=== PATIENT | male | born 1950 | race Caucasian/White ===

== ENCOUNTER 2017-02-19 15:55 | Inpatient (IN) | payer OTHER ==
[~2017-02-19] VITALS: Ht 180.3 cm; Wt 65.9 kg
--- NOTE | ~2017-02-19 | WRIGHTHP ---
[place], [place] PATIENT HISTORY AND PHYSICAL EXAM NAME: MIN VILCHIS UNIT #: [id number] ROOM: 421 DOCTOR: ALLISON NAYLORWILD BIRTHDATE: [birth year] DOS: 02/19/2017 HISTORY OF PRESENT ILLNESS: This is a 66-year-old patient who presented with anemia and after his lab results were assessed, was guided to be admitted for definitive evaluation. PAST MEDICAL HISTORY: Associated with atrial fibrillation, cirrhosis, hypertension, COPD and near syncopal episodes, depression, GERD, rectal mass. PAST SURGICAL HISTORY: Carotid endarterectomy, bronchoscopy, colon surgery. ALLERGIES: Details not known, cataract extraction. SOCIAL HISTORY: Heavy smoker and social alcohol consumer. FAMILY HISTORY: Noncontributory. ALLERGIES: None. MEDICATIONS: List has been reviewed. REVIEW OF SYSTEMS: HEENT: Denies double vision, blurred vision. RESPIRATORY: Denies acute shortness of breath. CARDIOVASCULAR: Denies acute chest pain. DIGESTIVE SYSTEM: No hematemesis, no hematochezia. PHYSICAL EXAMINATION: GENERAL: Relatively well-nourished, thin and tall patient. HEENT: Head normocephalic, nontraumatic. Mouth and buccal mucosa benign. NECK: Supple, no thyromegaly, no cervical lymphadenopathy. CHEST: Symmetric anatomy, decreased air entry bilaterally. HEART: Normal sinus rhythm, no gallop, no murmur. ABDOMEN: Soft. No hepato-organomegaly. Bowel sounds present. No pulsatile mass. EXTREMITIES: No cyanosis, no pedal edema. NEUROLOGICAL: Alert, oriented to time, place, person. LABORATORY DATA: Reviewed. Records reviewed. The patient was admitted with H and H of 7 and 26, microcytic indices, platelets 428. Today's H and H still remains 7 and 26 despite one unit of transfusion. Comprehensive metabolic panel, GFR greater than 60. His initial sodium was 121, severe hyponatremia. This has been addressed and sodium has been corrected to the level of 128. Etiology of hyponatremia has not been fully worked up yet. Chest x-ray, no cardiopulmonary abnormality. I will be remaining concerned if he has occult bronchogenic pathology to be contributory to hyponatremia. His CT scan of the head has no acute intracranial pathology. His troponin has been within normal limits. Hemoglobin A1c has been 5.4. PLAN AND DISCUSSION: Dyazide has been already placed on hold. EGD and [place], [place] PATIENT HISTORY AND PHYSICAL EXAM NAME: MIN VILCHIS UNIT #: [id number] ROOM: [facility] DOCTOR: WILD COOPER MD BIRTHDATE: [birth year] colonoscopy has been organized and clinical reassessment. Other adjunctive diagnoses as outlined. Past medical and surgical history, workup in progress. WILD COOPER MD CM:HISPHYS:PATIENT HISTORY AND PHYSICAL EXAMINATION [id number] WILD COOPER MD 02/20/171850 interface
--- NOTE | ~2017-02-19 | O ---
[place], [place] OPERATIVE NOTE NAME: MIN VILCHIS UNIT #: [id number] ROOM: 421 DOCTOR: ALLISON NAYLOR,WILD BIRTHDATE: [birth year] DOS: 02/19/2017 GASTROENDOSCOPIC REPORT INDICATIONS: The patient has presented with anemia, undergoing investigation. PROCEDURE: Today's procedure part of investigation is panendoscopy. PREMEDICATION: Versed and Diprivan. SCOPE: Olympus forward-viewing gastroscope Q10 video. REPORT: After putting the patient in the left lateral position and after application of lubricant to the scope, the scope was introduced. Thereafter, under direct visualization, I advanced through the length of esophagus without difficulty. A small hiatal hernia was noticed. Gastric pouch was entered. Gastritis seen. Duodenal bulb, second and third part within normal limit. AV malformations site in proximal greater curvature was noticed, photographed. Air was suctioned out. The patient was extubated, tolerated the procedure well. IMPRESSION: Hiatal hernia, arteriovenous malformation of greater curvature, gastritis. PLAN AND DISCUSSION: This patient should be off on anticoagulant in future. He needs to have follow up colonoscopies, so that his right colon can be scanned. Also, he has had multiple irregular polyps that I am concerned about the pathology report in in future and he is going to have follow up as outpatient and will sort out for near future colonoscopy again. WILD COOPER MD CM:OPRECORD:OPERATIVE NOTE [id number] WILD COOPER MD 02/21/17 0146 interface
--- NOTE | ~2017-02-19 | O ---
[place], [place] OPERATIVE NOTE NAME: MIN VILCHIS UNIT #: [id number] ROOM: 421 DOCTOR: ALLISON NAYLOR,WILD BIRTHDATE: [birth year] DOS: 02/19/2017 GASTROENDOSCOPIC REPORT HISTORY: A 66-year-old patient who presented with chief complaint of anemia, undergoing investigation. PROCEDURE: Today's procedure part of investigation is colonoscopy. PREMEDICATION: Versed and Diprivan. SCOPE: Olympus folding colonoscope 10L video. REPORT: After putting the patient in the left lateral position and after application of lubricant to rectal pouch and digital examination, scope was introduced. Thereafter, under direct visualization, I advanced through the length of colon. There was a very large cauliflower polypoid lesion on a long stalk in 10 cm from rectum was polypectomized. Small segment was removed. Another polypoid lesion in the proximal sigmoid colon again nodular snare was polypectomized and removed ____ late. Another polypoid lesion which is flat at about splenic flexure with a snare polypectomized and removed and site was tattooed. Another polypoid lesion again flat at about mid transverse colon with a snare with polypectomy removed and site was tattooed. Hepatic flexure and onwards is filled with solid stool. Scope was withdrawn. The patient extubated, tolerated procedure well. IMPRESSION: Multi-colonic polyp concerned about pathology of the polyp at 10 cm, status post multi-tattoo, concerned pathology. This patient requires to have multiple colonoscopies in future to sort out the rest of the colon. Meanwhile, I am going to proceed with panendoscopy today. WILD COOPER MD CM:OPRECORD:OPERATIVE NOTE [id number] WILD COOPER MD 02/21/17 0139 interface
[~2017-02-19 15:55] MED LIST: ADVAIR HFA 115/1 AER INH; ENALAPRILA1.25 MG/M1 IV; KAOPECTATE525 MG/11 PO; KLONOPIN0.5 MG PO; METOPROLOL25 MG PO; NATURE'S BLEND F1 MG PO; NORVASC5 MG PO; PLAVIX75 M1 PO; PROTONIX40 M1 IV; PROTONIX40 MG PO; SPIRIVA18 MCG PO; Ventolin 02.5 MG/3 M INH
[2017-02-19 16:01] VITALS: BP 134/70
[2017-02-19 16:45] LABS: BASO # 0.1 10*3/uL (0.0-0.1); EOS # 0.2 10*3/uL (0.0-0.4); EOS % 2.2 % (1.0-4.0); HEMOGLOBIN 7.7 g/dl (14.0-18.0); LYMPH # 1.2 10*3/uL (1.3-4.4); LYMPH % 14.7 % (27.0-41.0); MEAN CELL VOLUME 64.8 fl (80.0-94.0); MEAN CORPUSCULAR HGB 19.2 pg (27.0-31.0); MEAN CORPUSCULAR HGB CONC 29.6 g/dl (33.0-37.0); MEAN PLATELET VOLUME 8.4 fl (9.6-12.3); MONO # 0.8 10*3/uL (0.1-1.0); NEUT % 71.7 % (47.0-73.0); PLATELET COUNT AUTOMATED 422 10*3/uL (130-400); RED BLOOD COUNT 4.01 10*6/uL (4.50-5.90); RED CELL DISTRI WIDTH 19.2 % (0-14.5); WHITE BLOOD COUNT 8.3 10*3/uL (4.8-10.8)
[2017-02-19 16:47] LABS: ALBUMIN 3.9 gm/dl (3.1-4.5); ALKALINE PHOSPHATASE 114 U/L (45-117); BUN 6 mg/dl (7-24); CHLORIDE 82 mmol/L (98-107); CREATININE 0.76 mg/dL (0.70-1.30); POTASSIUM 3.5 mmol/L (3.5-5.1); SGOT/AST 14 IU/L (3-35); SGPT/ALT 19 U/L (12-78); SODIUM 121 mmol/L (136-145); TOTAL PROTEIN 8.1 gm/dL (6.4-8.2)
[2017-02-19 16:48] LABS: TROPONIN I < 0.015 ng/ml (<0.045)
[2017-02-19 16:53] LABS: ACT PARTIAL THROMBO TIME 33.5 SECONDS (20.8-31.5)
[2017-02-19 18:13] VITALS: BP 132/60
[2017-02-19 18:45] VITALS: BP 145/55
--- NOTE | 2017-02-19 18:50 | NUR ---
CONSULT CALLED TO DR. CASTELLANOS ANSWERING SERVICE.
--- NOTE | 2017-02-19 18:50 | NUR ---
A 66, admitted to 4E, under the services of ENIO Butler DO with a diagnosis of . Chief complaint is weakness. Patient arrived via stretcher from ER. Monitor applied. Initial assessment completed. Vital signs taken and recorded. ENIO BUTLER DO notified of admission to the unit. See assessment for past medical history, medications and allergies. Patient and/or family oriented to unit Clothing/patient valuable form completed. ALIZA LOWE
[2017-02-19] MEDS ORDERED: VITAMIN D350000 UNIT PO (19:20)
[2017-02-19] MEDS ORDERED: BUSPAR5 MG PO (19:21)
[2017-02-19] MEDS ORDERED: MIRTAZAPINE15 M2 PO (19:21)
[2017-02-19] MEDS ORDERED: OMEPRAZOLE MAGN20 MG PO (19:22)
[2017-02-19] MEDS ORDERED: CARDIZEM CD240 M1 PO (19:23)
[2017-02-19] MEDS ORDERED: K-TAB20 MEQ PO (19:23)
[2017-02-19] MEDS ORDERED: DYAZIDE 37.5-21 EACH PO (19:32)
--- NOTE | 2017-02-19 19:32 | NUR ---
home medications updated and varified with [facility]
[2017-02-19 20:00] VITALS: BP 153/61
--- NOTE | 2017-02-19 20:23 | NUR ---
1945 RESTING IN BED ON LEFT SIDE. ALERT. BLOOD TRANSFUSION PERMIT SIGNED. IV FLUIDS STARTED PER ORDER. NO C/O'S PAIN VOICED. NO DISTRESS NOTED.
--- NOTE | 2017-02-19 21:42 | NUR ---
NOTIFIED ON CONSULT. ORDERS RECEIVED.
--- NOTE | 2017-02-19 21:47 | NUR ---
PT INFORMED OF EGD/COLO TO BE DONE IN AM. INFORMED OF PREP TO BE STARTED,NPO AFTER MIDNIGHT ETC
--- NOTE | 2017-02-19 22:15 | NUR ---
AWAITING PHARMACY TO SEND PREP. IV FLUIDS CONT. RESTING IN BED WITH EYES CLOSED. CONDITION GUARDED.
--- NOTE | 2017-02-19 22:31 | NUR ---
DULCOLAX TABS GIVEN AND PT DRINKING POWERADE/MIRALAX FOR COLO PREP AT PRESENT TIME. ANESTHESIA QUESTIONAIRRE FILLED OUT AND SIGNED.
[2017-02-20] VITALS (9 sets, daily range): BP systolic 118–142; BP diastolic 49–73
[2017-02-20 02:11] LABS: BASO # 0.1 10*3/uL (0.0-0.1); BASO % 0.7 % (0.0-1.0); EOS # 0.2 10*3/uL (0.0-0.4); EOS % 1.9 % (1.0-4.0); HEMATOCRIT 26.7 % (42.0-52.0); HEMOGLOBIN 7.7 g/dl (14.0-18.0); LYMPH # 1.2 10*3/uL (1.3-4.4); LYMPH % 13.6 % (27.0-41.0); MEAN CELL VOLUME 65.9 fl (80.0-94.0); MEAN CORPUSCULAR HGB CONC 28.8 g/dl (33.0-37.0); MEAN PLATELET VOLUME 8.5 fl (9.6-12.3); MONO # 1.2 10*3/uL (0.1-1.0); MONO % 13.5 % (3.0-9.0); NEUT # 6.4 10*3/uL (2.3-7.9); PLATELET COUNT AUTOMATED 471 10*3/uL (130-400); RED BLOOD COUNT 4.05 10*6/uL (4.50-5.90); RED CELL DISTRI WIDTH 19.4 % (0-14.5); WHITE BLOOD COUNT 9.1 10*3/uL (4.8-10.8)
[2017-02-20 02:26] LABS: ALBUMIN 3.3 gm/dl (3.1-4.5); ALKALINE PHOSPHATASE 100 U/L (45-117); BUN 9 mg/dl (7-24); CHLORIDE 88 mmol/L (98-107); CHOLESTEROL 151 mg/dL (<200); CREATININE 0.79 mg/dL (0.70-1.30); PHOSPHOROUS 3.7 mg/dL (2.5-4.9); POTASSIUM 4.1 mmol/L (3.5-5.1); SGOT/AST 13 IU/L (3-35); SGPT/ALT 14 U/L (12-78); SODIUM 128 mmol/L (136-145); TOTAL PROTEIN 6.8 gm/dL (6.4-8.2); TRIGLYCERIDES 44 mg/dl (<150); VLDL CHOLESTEROL 9 mg/dL (6-40)
[2017-02-20 02:27] LABS: FREE T4 1.12 ng/dl (0.76-1.46); HDL CHOLESTEROL 100 mg/dl (40-60); LDL CHOLESTEROL 42 mg/dL (9-159)
[2017-02-20 02:53] LABS: VITAMIN D, 25-HYDROXY 56.9 ng/mL (30-100)
--- NOTE | 2017-02-20 04:04 | NUR ---
BLOOD TRANSFUSING PER DR. ORDERS AT THIS TIME. PT. SEEMS TO BE TOLERATING WELL. WILL CONTINUE TO MONITOR.
--- NOTE | 2017-02-20 08:19 | NUR ---
CALLED DR MCINTYRE OFFICE AND MADE THEM AWARE OF CONSULT FOR PATIENT.
--- NOTE | 2017-02-20 08:37 | NUR ---
PATIENT IS PLEASANT AND COOPERATIVE, AAOX3, PATIENT IS CURRENTLY RECEIVING ENEMA AND IS NPO DIGNA MARLEYCC
--- NOTE | 2017-02-20 09:42 | NUR ---
ENEMAS GIOVEN UNTIL CLEAR, PT TOLERATED THE PROCEDURE WELL GERMANIA RIVERO
--- NOTE | 2017-02-20 10:50 | NUR ---
PT RESTING COMFORTABLY. WAITING FOR PROCEDURE. YANCY DURANT SPNRCC
--- NOTE | 2017-02-20 12:31 | NUR ---
PATIENT LAYING QUIETLY IN BED, PATIENT VOICED SOME AGITATION ABOUT BEING HUNGRY BUT HE IS STILL NPO DIGNA MARLEYCC
--- NOTE | 2017-02-20 13:35 | NUR ---
TO SURGERY ACCOMPANIED BY OR STAFF GERMANIA LAM SPFLAVIACC
--- NOTE | 2017-02-20 14:00 | NUR ---
case management visits with patient, was present, patient lives at home with , he uses a cane for ambulation, stated that he would be returning home with her. discussed with them Vna and refused any at this time, case management will follow
--- NOTE | 2017-02-20 15:10 | NUR ---
PT RESTING IN BED. NO C/O AT THIS TIME. SURGERY ON THE FLOOR TO TAKE PT VIA BED FOR PROCEDURE. SEE SHIFT ASSESSMENT.
--- NOTE | 2017-02-20 21:00 | NUR ---
PT ASSESSED AT THIS TIME. ALERT ORIENTED AND PLEASANT MOOD. RESPIRATIONS EASY AND UNLABORED. NO S/S OF DISTRESS OR PAIN. LUNGS DIMINISHED BILATERALLY, HEART RATE IN 80S ON PALLET STONE INSERTER. ABDOMEN SOFT, NON DISTENDED WITH NORMOACTIVE BOWEL SOUNDS. ALL NEEDS MET AT THIS TIME CALL LIGHT IN REACH.
--- NOTE | 2017-02-20 22:00 | NUR ---
PT HS MEDICATION GIVEN AT THIS TIME AND TOLERATED WELL. NO S/S OF DISTRESS. RESPIRATIONS EASY.
[2017-02-21] VITALS: BP 126/60
--- NOTE | 2017-02-21 04:30 | NUR ---
AM MEDICATION ADMINISTERED AND TAKEN WITH EASE. RESPIRATIONS EASY AND UNLABORED. ALL NEEDS MET, SAFETY MEASURES IN PLACE.
--- NOTE | 2017-02-21 05:33 | NUR ---
PT C/O GENERALIZED PAIN. NORCO 5/325 MG TAB ADMINISTERED PO. WILL MONITOR FOR EFFECTIVENESS.
[2017-02-21 06:16] LABS: BASO # 0.1 10*3/uL (0.0-0.1); BASO % 0.4 % (0.0-1.0); EOS % 0.2 % (1.0-4.0); HEMATOCRIT 28.9 % (42.0-52.0); HEMOGLOBIN 8.5 g/dl (14.0-18.0); LYMPH # 0.9 10*3/uL (1.3-4.4); LYMPH % 7.9 % (27.0-41.0); MEAN CELL VOLUME 68.8 fl (80.0-94.0); MEAN CORPUSCULAR HGB 20.2 pg (27.0-31.0); MEAN CORPUSCULAR HGB CONC 29.4 g/dl (33.0-37.0); MEAN PLATELET VOLUME 8.5 fl (9.6-12.3); MONO # 1.1 10*3/uL (0.1-1.0); MONO % 9.9 % (3.0-9.0); NEUT # 9.1 10*3/uL (2.3-7.9); NEUT % 81.1 % (47.0-73.0); PLATELET COUNT AUTOMATED 456 10*3/uL (130-400); RED CELL DISTRI WIDTH 21.2 % (0-14.5); WHITE BLOOD COUNT 11.2 10*3/uL (4.8-10.8)
[2017-02-21 06:25] LABS: ALBUMIN 3.2 gm/dl (3.1-4.5); BUN 6 mg/dl (7-24); CHLORIDE 93 mmol/L (98-107); CREATININE 0.78 mg/dL (0.70-1.30); PHOSPHOROUS 2.9 mg/dL (2.5-4.9); POTASSIUM 3.5 mmol/L (3.5-5.1); SODIUM 132 mmol/L (136-145)
--- NOTE | 2017-02-21 06:33 | NUR ---
JACKIE EFFECTIVE. PT RESTING IN BED. CALL LIGHT IN REACH.
[2017-02-21 08:00] VITALS: BP 126/61; BP 126/62
--- NOTE | 2017-02-21 08:25 | NUR ---
PT AWAKE, PLEASANT AND COOPERATIVE. WAITING FOR HIS BREAKFAST TO ARRIVE. YANCY DURANT SPCC
--- NOTE | 2017-02-21 09:00 | NUR ---
case management visits with patient, patient will return home when medically stable and denies any home needs
--- NOTE | 2017-02-21 10:00 | NUR ---
CAME IN TO SEE PT. PT MAY GET TO GO HOME TOMORROW. Sada Stokes SPFLAVIACC
[2017-02-21 12:00] VITALS: BP 137/57
--- NOTE | 2017-02-21 12:00 | NUR ---
PT IS AWAKE AND RESTING IN BED COMFORTABLY. YANCY DURANT SPNRCC
--- NOTE | 2017-02-21 13:28 | NUR ---
MEDICATED PT WITH NORCO PER REQUEST FOR HEADACHE THAT PT RATES A 6 OUT OF 10 YANCY MARLEYCC
--- NOTE | 2017-02-21 13:49 | NUR ---
PT RESTING QUIETLY, STATES THAT HEADACHE IS STARTING TO IMPROVE YANCY DURANT SPNRCC
[2017-02-21] MEDS ORDERED: B12,B-12,B 12500 MC1 PO (14:01)
[2017-02-21] MEDS ORDERED: FEROSUL325 MG PO (14:01)
--- NOTE | 2017-02-21 14:55 | NUR ---
DISCHARGED TO HOME IN CARE OF . INSTRUCTIONS AND PERSCRIPTIONS REVIEWED WITH PT. PT ALREADY RECIEVED FLU VACCINE THIS SEASON.
== END 2017-02-21 14:55 | disposition home or self-care (01) | DRG 812 ==
LOC: ED 15:55 → 4E 17:31 → EDHOLD 17:31 → 4E 17:49
PROVIDERS: Family Medicine; Hospitalist; Student in an Organized Health Care Education/Training Program; ADMIT Internal Medicine
DX: D50.9 Iron deficiency anemia, unspecified (principal); E87.1 Hypo-osmolality and hyponatremia; I48.0 Paroxysmal atrial fibrillation; E87.8 Other disorders of electrolyte and fluid balance, not elsewhere classified; I50.40 Unspecified combined systolic (congestive) and diastolic (congestive) heart failure; F33.9 Major depressive disorder, recurrent, unspecified; I11.0 Hypertensive heart disease with heart failure; F10.20 Alcohol dependence, uncomplicated; J44.9 Chronic obstructive pulmonary disease, unspecified; E16.2 Hypoglycemia, unspecified; K70.30 Alcoholic cirrhosis of liver without ascites; K21.9 Gastro-esophageal reflux disease without esophagitis; D72.810 Lymphocytopenia; W19.XXXA Unspecified fall, initial encounter; F41.9 Anxiety disorder, unspecified; E55.9 Vitamin D deficiency, unspecified; K31.819 Angiodysplasia of stomach and duodenum without bleeding; D47.3 Essential (hemorrhagic) thrombocythemia; D36.9 Benign neoplasm, unspecified site; K29.70 Gastritis, unspecified, without bleeding; K44.9 Diaphragmatic hernia without obstruction or gangrene; Z66 Do not resuscitate; Z51.5 Encounter for palliative care; Z71.6 Tobacco abuse counseling; Z98.42 Cataract extraction status, left eye; Z98.41 Cataract extraction status, right eye; Z91.041 Radiographic dye allergy status; Z80.1 Family history of malignant neoplasm of trachea, bronchus and lung; Z83.6 Family history of other diseases of the respiratory system; Z79.899 Other long term (current) drug therapy; Z23 Encounter for immunization; Y93.89 Activity, other specified; Y92.89 Other specified places as the place of occurrence of the external cause; Y99.8 Other external cause status; F17.210 Nicotine dependence, cigarettes, uncomplicated; R29.898 Other symptoms and signs involving the musculoskeletal system

== ENCOUNTER → 2019-04-27 | Outpatient (CLI) | payer OTHER ==
[~2019-04-27] MED LIST changes: +B12,B-12,B 12500 MC1 PO; +BUSPAR5 MG PO; +CARDIZEM CD240 M1 PO; +DYAZIDE 37.5-21 EACH PO; +FEROSUL325 MG PO; +K-TAB20 MEQ PO; +MIRTAZAPINE15 M2 PO; +OMEPRAZOLE MAGN20 MG PO; +VITAMIN D350000 UNIT PO
== END | disposition home or self-care (01) ==
LOC: CT 13:51
DX: G31.9 Degenerative disease of nervous system, unspecified (principal); I63.89 Other cerebral infarction; R41.3 Other amnesia

== ENCOUNTER 2020-05-25 11:39 | Inpatient (IN) | payer OTHER ==
[~2020-05-25] VITALS: Ht 177.8 cm; Wt 56.0 kg
[~2020-05-25 11:39] MED LIST changes: +VITAMIN D3125 MCG PO; -VITAMIN D350000 UNIT PO
[2020-05-25 11:43] VITALS: BP 148/64
[2020-05-25 12:11] LABS: BASO % 0.6 % (0.0-1.0); EOS % 0.5 % (1.0-4.0); HEMATOCRIT 37.3 % (42.0-52.0); LYMPH # 0.7 10*3/uL (1.3-4.4); LYMPH % 10.8 % (27.0-41.0); MEAN CELL VOLUME 91.4 fl (80.0-94.0); MEAN CORPUSCULAR HGB 32.6 pg (27.0-31.0); MEAN CORPUSCULAR HGB CONC 35.7 g/dl (33.0-37.0); MEAN PLATELET VOLUME 8.8 fl (9.6-12.3); MONO # 0.7 10*3/uL (0.1-1.0); NEUT # 5.1 10*3/uL (2.3-7.9); NEUT % 77.8 % (47.0-73.0); PLATELET COUNT AUTOMATED 311 10*3/uL (130-400); RED BLOOD COUNT 4.08 10*6/uL (4.50-5.90); RED CELL DISTRI WIDTH 13.2 % (0-14.5); WHITE BLOOD COUNT 6.5 10*3/uL (4.8-10.8)
[2020-05-25 12:20] LABS: ACT PARTIAL THROMBO TIME 31.8 SECONDS (20.0-32.1)
[2020-05-25 12:25] LABS: ALBUMIN 3.9 gm/dl (3.1-4.5); ALKALINE PHOSPHATASE 69 U/L (45-117); BUN 11 mg/dl (7-24); CHLORIDE 85 mmol/L (98-107); CREATININE 0.76 mg/dL (0.70-1.30); LIPASE 138 U/L (73-393); POTASSIUM 4.1 mmol/L (3.5-5.1); SGOT/AST 16 IU/L (3-35); SGPT/ALT 26 U/L (12-78); SODIUM 122 mmol/L (136-145); TOTAL PROTEIN 7.2 gm/dL (6.4-8.2)
[2020-05-25 12:26] LABS: TROPONIN I < 0.015 ng/ml (<0.045)
[2020-05-25 15:09] VITALS: BP 132/68
[2020-05-25] MEDS ORDERED: MAGNESIUM400 M1 PO (15:59)
[2020-05-25] MEDS ORDERED: FLOMAX0.4 MG PO (15:59)
[2020-05-25 17:12] VITALS: BP 131/55
[2020-05-25 20:00] VITALS: BP 126/55
[2020-05-25 21:13] LABS: BUN 10 mg/dl (7-24); CHLORIDE 86 mmol/L (98-107); CREATININE 0.64 mg/dL (0.70-1.30); POTASSIUM 3.5 mmol/L (3.5-5.1); SODIUM 122 mmol/L (136-145)
[2020-05-26] VITALS: BP 115/58
[2020-05-26 06:34] LABS: HEMATOCRIT 36.4 % (42.0-52.0); MEAN CORPUSCULAR HGB 32.5 pg (27.0-31.0); MEAN CORPUSCULAR HGB CONC 35.7 g/dl (33.0-37.0); PLATELET COUNT AUTOMATED 364 10*3/uL (130-400); WHITE BLOOD COUNT 3.8 10*3/uL (4.8-10.8)
[2020-05-26 06:56] LABS: ALBUMIN 3.7 gm/dl (3.1-4.5); ALKALINE PHOSPHATASE 62 U/L (45-117); BUN 9 mg/dl (7-24); CHLORIDE 88 mmol/L (98-107); CHOLESTEROL 137 mg/dL (<200); CREATININE 0.78 mg/dL (0.70-1.30); FREE T4 1.11 ng/dl (0.76-1.46); HDL CHOLESTEROL 97 mg/dl (40-60); LDL CHOLESTEROL 32 mg/dL (9-159); SGOT/AST 15 IU/L (3-35); TOTAL PROTEIN 6.8 gm/dL (6.4-8.2); TRIGLYCERIDES 40 mg/dl (<150); VLDL CHOLESTEROL 8 mg/dL (6-40)
[2020-05-26 07:01] LABS: SGPT/ALT 20 U/L (12-78); THYROID STIM HORMONE (HS) 0.655 uIU/ml (0.358-4.75)
[2020-05-26 07:14] LABS: SODIUM 124 mmol/L (136-145)
[2020-05-26 07:25] LABS: POTASSIUM 4.7 mmol/L (3.5-5.1)
[2020-05-26 07:37] LABS: VITAMIN D, 25-HYDROXY 96.5 ng/mL (30-100)
[2020-05-26 07:50] LABS: ATYPICAL LYMPHS 1 % (0-0); PLATELET SUFFICIENCY NORMAL (NORMAL); TOTAL CELLS COUNTED 100 #CELLS
[2020-05-26 08:00] VITALS: BP 96/73
[2020-05-26 12:00] VITALS: BP 134/53
[2020-05-26 16:00] VITALS: BP 120/73
[2020-05-26 17:15] LABS: BUN 22 mg/dl (7-24); CHLORIDE 89 mmol/L (98-107); CREATININE 1.03 mg/dL (0.70-1.30); POTASSIUM 3.9 mmol/L (3.5-5.1); SODIUM 124 mmol/L (136-145)
[2020-05-26 20:00] VITALS: BP 132/57
[2020-05-27] VITALS: BP 128/66
[2020-05-27 06:37] LABS: BUN 14 mg/dl (7-24); CHLORIDE 97 mmol/L (98-107); CREATININE 0.79 mg/dL (0.70-1.30); POTASSIUM 4.1 mmol/L (3.5-5.1); SODIUM 132 mmol/L (136-145)
[2020-05-27 06:47] LABS: HEMATOCRIT 31.8 % (42.0-52.0); MEAN CELL VOLUME 93.5 fl (80.0-94.0); MEAN CORPUSCULAR HGB 32.4 pg (27.0-31.0); MEAN CORPUSCULAR HGB CONC 34.6 g/dl (33.0-37.0); MEAN PLATELET VOLUME 9.2 fl (9.6-12.3); PLATELET COUNT AUTOMATED 360 10*3/uL (130-400); RED CELL DISTRI WIDTH 13.3 % (0-14.5); WHITE BLOOD COUNT 7.5 10*3/uL (4.8-10.8)
[2020-05-27 07:59] LABS: BURR CELLS MODERATE; PLATELET SUFFICIENCY NORMAL (NORMAL); POLYCHROMASIA SLIGHT; TOTAL CELLS COUNTED 100 #CELLS
[2020-05-27 08:00] VITALS: BP 100/64
[2020-05-27 12:00] VITALS: BP 134/61
[2020-05-27 13:00] VITALS: BP 135/56
[2020-05-27 16:00] VITALS: BP 117/53
[2020-05-27 20:00] VITALS: BP 131/48
[2020-05-28] VITALS: BP 127/57
[2020-05-28 07:43] LABS: BUN 16 mg/dl (7-24); CHLORIDE 98 mmol/L (98-107); CREATININE 0.62 mg/dL (0.70-1.30); POTASSIUM 3.5 mmol/L (3.5-5.1); SODIUM 133 mmol/L (136-145)
[2020-05-28 08:00] VITALS: BP 126/62
[2020-05-28 12:00] VITALS: BP 140/71
[2020-05-28 16:00] VITALS: BP 112/59
[2020-05-28 20:00] VITALS: BP 151/73
[2020-05-29] VITALS: BP 135/63
[2020-05-29 06:37] LABS: BUN 12 mg/dl (7-24); CHLORIDE 96 mmol/L (98-107); CREATININE 0.59 mg/dL (0.70-1.30); POTASSIUM 3.9 mmol/L (3.5-5.1); SODIUM 133 mmol/L (136-145)
[2020-05-29 08:00] VITALS: BP 141/62
[2020-05-29 12:00] VITALS: BP 118/75
[2020-05-29 16:00] VITALS: BP 114/57
[2020-05-29 20:00] VITALS: BP 124/66
[2020-05-30] VITALS: BP 127/62
[2020-05-30 06:44] LABS: HEMATOCRIT 33.1 % (42.0-52.0); LYMPH # 0.4 10*3/uL (1.3-4.4); LYMPH % 4.6 % (27.0-41.0); MEAN CELL VOLUME 98.2 fl (80.0-94.0); MEAN CORPUSCULAR HGB 32.6 pg (27.0-31.0); MEAN CORPUSCULAR HGB CONC 33.2 g/dl (33.0-37.0); MEAN PLATELET VOLUME 9.3 fl (9.6-12.3); MONO # 0.5 10*3/uL (0.1-1.0); MONO % 5.7 % (3.0-9.0); NEUT # 7.4 10*3/uL (2.3-7.9); NEUT % 89.1 % (47.0-73.0); PLATELET COUNT AUTOMATED 399 10*3/uL (130-400); RED BLOOD COUNT 3.37 10*6/uL (4.50-5.90); RED CELL DISTRI WIDTH 13.8 % (0-14.5); WHITE BLOOD COUNT 8.3 10*3/uL (4.8-10.8)
[2020-05-30 08:00] VITALS: BP 156/92
[2020-05-30] MEDS ORDERED: DULE1ARO INH (10:55)
[2020-05-30] MEDS ORDERED: PREDNISONE10 MG PO (10:55)
[2020-05-30] MEDS ORDERED: LEVOFLOXACIN500 MG PO ×2 (10:55)
[2020-05-30] MEDS ORDERED: Ipratropium Brom3 ML INH (10:57)
== END 2020-05-30 14:37 | disposition home or self-care (01) | DRG 191 ==
LOC: ED 11:39 → 5E 14:50 → EDHOLD 14:50 → 5E 15:50
PROVIDERS: Emergency Medicine; Internal Medicine; ADMIT Internal Medicine; ATTEND Internal Medicine
DX: J44.0 Chronic obstructive pulmonary disease with (acute) lower respiratory infection (principal); E87.1 Hypo-osmolality and hyponatremia; E87.2 Acidosis; I50.40 Unspecified combined systolic (congestive) and diastolic (congestive) heart failure; Z66 Do not resuscitate; J44.1 Chronic obstructive pulmonary disease with (acute) exacerbation; I48.91 Unspecified atrial fibrillation; K74.60 Unspecified cirrhosis of liver; K21.9 Gastro-esophageal reflux disease without esophagitis; F10.20 Alcohol dependence, uncomplicated; F17.210 Nicotine dependence, cigarettes, uncomplicated; F32.9 Major depressive disorder, single episode, unspecified; D64.9 Anemia, unspecified; R73.9 Hyperglycemia, unspecified; E87.8 Other disorders of electrolyte and fluid balance, not elsewhere classified; J20.9 Acute bronchitis, unspecified; R91.1 Solitary pulmonary nodule; Z80.1 Family history of malignant neoplasm of trachea, bronchus and lung; Z82.5 Family history of asthma and other chronic lower respiratory diseases; Z79.51 Long term (current) use of inhaled steroids; Z79.899 Other long term (current) drug therapy; Z71.6 Tobacco abuse counseling

== ENCOUNTER 2020-06-03 10:07 | Inpatient (IN) | payer OTHER ==
[~2020-06-03] VITALS: Ht 175.2 cm; Wt 59.0 kg
[~2020-06-03 10:07] MED LIST changes: +DULE1ARO INH; +FLOMAX0.4 MG PO; +Ipratropium Brom3 ML INH; +LEVOFLOXACIN500 MG PO; +MAGNESIUM400 M1 PO; +PREDNISONE10 MG PO
[2020-06-03 10:08] VITALS: BP 160/78
[2020-06-03 14:54] VITALS: BP 100/68
[2020-06-03] MEDS ORDERED: HYDROCODONE-AC1 EAC2 PO (16:41)
[2020-06-03] MEDS ORDERED: TAMSULOSIN HCL0.4 MG PO (16:42)
[2020-06-03] MEDS ORDERED: BUSPAR5 MG PO (16:52)
[2020-06-03] MEDS ORDERED: TRIAMTERENE-HC1 EACH PO (16:54)
[2020-06-03] MEDS ORDERED: CETIRIZINE HYDR10 MG PO (16:55)
[2020-06-03] MEDS ORDERED: CARTIA XT240 MG PO (16:55)
[2020-06-03] MEDS ORDERED: VITAMIN D2 (ERGO) 1. (16:56)
[2020-06-03] MEDS ORDERED: OMEPRAZOLE MAGN20 MG PO (16:58)
[2020-06-03 19:32] VITALS: BP 100/62
[2020-06-03 23:00] VITALS: BP 119/52
[2020-06-04] VITALS: BP 113/60
[2020-06-04 06:39] LABS: BASO % 0.1 % (0.0-1.0); EOS # 0.4 10*3/uL (0.0-0.4); EOS % 3.3 % (1.0-4.0); HEMATOCRIT 35.3 % (42.0-52.0); LYMPH # 1.1 10*3/uL (1.3-4.4); MEAN CELL VOLUME 96.7 fl (80.0-94.0); MEAN CORPUSCULAR HGB 32.6 pg (27.0-31.0); MEAN CORPUSCULAR HGB CONC 33.7 g/dl (33.0-37.0); MEAN PLATELET VOLUME 8.7 fl (9.6-12.3); MONO # 1.1 10*3/uL (0.1-1.0); MONO % 10.1 % (3.0-9.0); NEUT # 8.6 10*3/uL (2.3-7.9); NEUT % 75.7 % (47.0-73.0); PLATELET COUNT AUTOMATED 338 10*3/uL (130-400); RED BLOOD COUNT 3.65 10*6/uL (4.50-5.90); RED CELL DISTRI WIDTH 13.5 % (0-14.5); WHITE BLOOD COUNT 11.3 10*3/uL (4.8-10.8)
[2020-06-04 07:15] LABS: ALBUMIN 2.9 gm/dl (3.1-4.5); BUN 12 mg/dl (7-24); CHLORIDE 93 mmol/L (98-107); POTASSIUM 3.6 mmol/L (3.5-5.1); SODIUM 129 mmol/L (136-145)
[2020-06-04 07:24] LABS: ALKALINE PHOSPHATASE 43 U/L (45-117); CREATININE 0.61 mg/dL (0.70-1.30); SGOT/AST 15 IU/L (3-35); SGPT/ALT 32 U/L (12-78); TOTAL PROTEIN 5.2 gm/dL (6.4-8.2)
[2020-06-04 08:00] VITALS: BP 116/47
[2020-06-04 12:00] VITALS: BP 149/67
[2020-06-04 16:00] VITALS: BP 116/59
[2020-06-04 20:00] VITALS: BP 123/78
[2020-06-05] VITALS: BP 126/61
[2020-06-05 06:06] LABS: BASO % 0.1 % (0.0-1.0); EOS # 0.2 10*3/uL (0.0-0.4); EOS % 1.9 % (1.0-4.0); HEMATOCRIT 35.4 % (42.0-52.0); LYMPH # 0.9 10*3/uL (1.3-4.4); LYMPH % 10.8 % (27.0-41.0); MEAN CELL VOLUME 97.8 fl (80.0-94.0); MEAN CORPUSCULAR HGB 32.9 pg (27.0-31.0); MEAN CORPUSCULAR HGB CONC 33.6 g/dl (33.0-37.0); MEAN PLATELET VOLUME 8.6 fl (9.6-12.3); MONO # 0.9 10*3/uL (0.1-1.0); MONO % 10.7 % (3.0-9.0); NEUT # 6.5 10*3/uL (2.3-7.9); NEUT % 76.1 % (47.0-73.0); PLATELET COUNT AUTOMATED 322 10*3/uL (130-400); RED BLOOD COUNT 3.62 10*6/uL (4.50-5.90); RED CELL DISTRI WIDTH 13.7 % (0-14.5); WHITE BLOOD COUNT 8.5 10*3/uL (4.8-10.8)
[2020-06-05 06:30] LABS: BUN 12 mg/dl (7-24); CHLORIDE 97 mmol/L (98-107); CREATININE 0.65 mg/dL (0.70-1.30); POTASSIUM 4.5 mmol/L (3.5-5.1); SODIUM 134 mmol/L (136-145)
[2020-06-05 08:00] VITALS: BP 153/71
[2020-06-05 12:00] VITALS: BP 121/63
[2020-06-05 16:00] VITALS: BP 118/49
[2020-06-05 20:00] VITALS: BP 99/41
[2020-06-06] VITALS: BP 107/52
[2020-06-06 08:00] VITALS: BP 136/57
[2020-06-06 12:00] VITALS: BP 123/62
[2020-06-06 16:00] VITALS: BP 127/66
[2020-06-06 20:00] VITALS: BP 121/53
[2020-06-07] VITALS: BP 123/49
[2020-06-07 08:00] VITALS: BP 150/67
[2020-06-07 12:00] VITALS: BP 152/72
[2020-06-07 16:00] VITALS: BP 144/53
[2020-06-07 20:00] VITALS: BP 123/67
[2020-06-08] VITALS: BP 147/60
[2020-06-08 07:14] LABS: BUN 11 mg/dl (7-24); CHLORIDE 99 mmol/L (98-107); CREATININE 0.65 mg/dL (0.70-1.30); POTASSIUM 5.2 mmol/L (3.5-5.1); SODIUM 134 mmol/L (136-145)
[2020-06-08 08:00] VITALS: BP 119/54
[2020-06-08 12:00] VITALS: BP 121/72
[2020-06-08 12:09] LABS: BUN 11 mg/dl (7-24); CHLORIDE 97 mmol/L (98-107); CREATININE 0.63 mg/dL (0.70-1.30); POTASSIUM 4.4 mmol/L (3.5-5.1); SODIUM 132 mmol/L (136-145)
[2020-06-08] MEDS ORDERED: K-TAB20 MEQ PO (13:08)
[2020-06-08] MEDS ORDERED: HYDROCODONE-AC1 EAC2 PO (13:08)
[2020-06-08 16:00] VITALS: BP 125/68
[2020-06-08 20:00] VITALS: BP 122/38
[2020-06-09] VITALS: BP 116/49
[2020-06-09 05:16] VITALS: BP 122/53
[2020-06-09 08:00] VITALS: BP 127/96
[2020-06-09 11:56] VITALS: BP 125/59; BP 132/60
== END 2020-06-09 12:12 | disposition home or self-care (01) | DRG 536 ==
LOC: ED 10:07 → 5E 16:03 → EDHOLD 16:03 → 5E 19:58
PROVIDERS: Internal Medicine; ADMIT Family Medicine; ATTEND Family Medicine
DX: S72.114A Nondisplaced fracture of greater trochanter of right femur, initial encounter for closed fracture (principal); E44.0 Moderate protein-calorie malnutrition; I50.42 Chronic combined systolic (congestive) and diastolic (congestive) heart failure; Z68.1 Body mass index [BMI] 19.9 or less, adult; J44.9 Chronic obstructive pulmonary disease, unspecified; K70.30 Alcoholic cirrhosis of liver without ascites; K21.9 Gastro-esophageal reflux disease without esophagitis; I48.91 Unspecified atrial fibrillation; I11.0 Hypertensive heart disease with heart failure; F32.9 Major depressive disorder, single episode, unspecified; W18.30XA Fall on same level, unspecified, initial encounter; Z20.822 Contact with and (suspected) exposure to COVID-19; F41.9 Anxiety disorder, unspecified; F17.210 Nicotine dependence, cigarettes, uncomplicated; Z71.6 Tobacco abuse counseling; Z80.1 Family history of malignant neoplasm of trachea, bronchus and lung; Z83.6 Family history of other diseases of the respiratory system; Y93.89 Activity, other specified; Y92.89 Other specified places as the place of occurrence of the external cause; Y99.8 Other external cause status

== ENCOUNTER → 2020-12-27 | Outpatient (CLI) | payer OTHER ==
[~2020-12-27] MED LIST changes: +CARTIA XT240 MG PO; +CETIRIZINE HYDR10 MG PO; +HYDROCODONE-AC1 EAC2 PO; +TAMSULOSIN HCL0.4 MG PO; +TRIAMTERENE-HC1 EACH PO; +VITAMIN D2 (ERGO) 1.
== END | disposition home or self-care (01) ==
LOC: US 13:17
PROVIDERS: ATTEND Family Medicine
DX: I70.292 Other atherosclerosis of native arteries of extremities, left leg (principal); M79.604 Pain in right leg; M79.605 Pain in left leg

== ENCOUNTER → 2021-09-11 | Outpatient (CLI) | payer OTHER ==
[~2021-09-11] MED LIST changes: +FINASTERIDE5 M1 PO; +HYDROCODONE-AC1 EAC1 PO; +MEGACE40 MG PO; +OMNICEF300 MG PO
== END | disposition home or self-care (01) ==
LOC: US 08-11 13:30
PROVIDERS: ATTEND Family Medicine
DX: N32.3 Diverticulum of bladder (principal); R33.9 Retention of urine, unspecified

== ENCOUNTER → 2021-10-18 | Outpatient (CLI) | payer MEDICARE ==
[2021-10-18 15:56] LABS: POTASSIUM 3.8 mmol/L (3.5-5.1)
== END ==
LOC: LAB 14:51
PROVIDERS: ATTEND Family Medicine
DX: I10 Essential (primary) hypertension (principal)

== ENCOUNTER 2021-10-20 16:34 | Emergency (ER) | payer MEDICARE ==
[~2021-10-20] VITALS: Ht 177.8 cm; Wt 55.8 kg
[2021-10-20 16:56] VITALS: BP 117/62
[2021-10-20 17:42] LABS: BILIRUBIN Negative (Negative); BLOOD Negative (Negative); CLARITY Clear (Clear); COLOR Yellow (Yellow); GLUCOSE Negative (Negative); KETONE Trace (Negative); LEUKO ESTERASE Negative (Negative); NITRITE Negative (Negative)
[2021-10-20 17:58] LABS: BACTERIA TRACE; HYALINE CAST TNTC; WBC 0-2 wbc/hpf (0-5)
[2021-10-20 18:01] LABS: BASO # 0.1 10*3/uL (0.0-0.1); BASO % 0.8 % (0.0-1.0); EOS # 0.2 10*3/uL (0.0-0.4); EOS % 2.3 % (1.0-4.0); HEMATOCRIT 35.8 % (42.0-52.0); LYMPH # 1.2 10*3/uL (1.3-4.4); LYMPH % 13.5 % (27.0-41.0); MEAN CELL VOLUME 92.7 fl (80.0-94.0); MEAN CORPUSCULAR HGB 31.9 pg (27.0-31.0); MEAN CORPUSCULAR HGB CONC 34.4 g/dl (33.0-37.0); MEAN PLATELET VOLUME 9.2 fl (9.6-12.3); MONO # 1.1 10*3/uL (0.1-1.0); MONO % 12.3 % (3.0-9.0); NEUT % 70.7 % (47.0-73.0); PLATELET COUNT AUTOMATED 317 10*3/uL (130-400); RED BLOOD COUNT 3.86 10*6/uL (4.50-5.90); RED CELL DISTRI WIDTH 13.5 % (0-14.5); WHITE BLOOD COUNT 8.5 10*3/uL (4.8-10.8)
[2021-10-20 18:16] LABS: ALKALINE PHOSPHATASE 57 U/L (45-117); BUN 16 mg/dl (7-24); CHLORIDE 93 mmol/L (98-107); CREATININE 0.88 mg/dL (0.70-1.30); POTASSIUM 3.5 mmol/L (3.5-5.1); SGOT/AST 14 IU/L (3-35); SGPT/ALT 18 U/L (12-78); SODIUM 127 mmol/L (136-145); TOTAL PROTEIN 6.6 gm/dL (6.4-8.2)
[2021-10-20] MEDS ORDERED: FLOMAX0.4 MG PO (19:04)
== END 2021-10-20 20:20 | disposition home or self-care (01) ==
LOC: ED 16:34
PROVIDERS: Nurse Practitioner Family
DX: R33.9 Retention of urine, unspecified (principal); Z79.899 Other long term (current) drug therapy; Z98.890 Other specified postprocedural states; F17.200 Nicotine dependence, unspecified, uncomplicated

== ENCOUNTER → 2021-11-08 | Outpatient (CLI) | payer MEDICARE | END | disposition home or self-care (01) | LOC: CT 10:00 | PROVIDERS: ATTEND Urology | DX: N32.3 Diverticulum of bladder (principal); K44.9 Diaphragmatic hernia without obstruction or gangrene; K80.20 Calculus of gallbladder without cholecystitis without obstruction; M47.816 Spondylosis without myelopathy or radiculopathy, lumbar region; M41.86 Other forms of scoliosis, lumbar region; I70.0 Atherosclerosis of aorta; N28.1 Cyst of kidney, acquired ==

== ENCOUNTER 2022-01-25 11:24 | Inpatient (IN) | payer MEDICARE ==
[~2022-01-25] VITALS: Ht 170.2 cm; Wt 61.3 kg
[2022-01-25 11:28] VITALS: BP 151/71
[2022-01-25 13:15] LABS: BASO % 0.3 % (0.0-1.0); EOS # 0.1 10*3/uL (0.0-0.4); EOS % 0.4 % (1.0-4.0); HEMATOCRIT 37.3 % (42.0-52.0); LYMPH # 0.7 10*3/uL (1.3-4.4); LYMPH % 5.8 % (27.0-41.0); MEAN CELL VOLUME 87.8 fl (80.0-94.0); MEAN CORPUSCULAR HGB 31.5 pg (27.0-31.0); MEAN CORPUSCULAR HGB CONC 35.9 g/dl (33.0-37.0); MEAN PLATELET VOLUME 8.5 fl (9.6-12.3); MONO # 0.9 10*3/uL (0.1-1.0); MONO % 7.6 % (3.0-9.0); NEUT # 10.2 10*3/uL (2.3-7.9); NEUT % 85.6 % (47.0-73.0); PLATELET COUNT AUTOMATED 302 10*3/uL (130-400); RED BLOOD COUNT 4.25 10*6/uL (4.50-5.90); RED CELL DISTRI WIDTH 13.3 % (0-14.5); WHITE BLOOD COUNT 11.9 10*3/uL (4.8-10.8)
[2022-01-25 13:30] VITALS: BP 152/71
[2022-01-25 13:39] LABS: ALKALINE PHOSPHATASE 65 U/L (45-117); BUN 11 mg/dl (7-24); CHLORIDE 90 mmol/L (98-107); CREATININE 0.74 mg/dL (0.70-1.30); POTASSIUM 3.7 mmol/L (3.5-5.1); SGOT/AST 14 IU/L (3-35); SGPT/ALT 17 U/L (12-78); SODIUM 128 mmol/L (136-145); TOTAL PROTEIN 6.9 gm/dL (6.4-8.2)
[2022-01-25 15:30] VITALS: BP 165/60
[2022-01-25 18:16] VITALS: BP 147/62
[2022-01-25 19:03] LABS: BILIRUBIN Negative (Negative); BLOOD Negative (Negative); CLARITY Clear (Clear); COLOR Yellow (Yellow); GLUCOSE Negative (Negative); KETONE Negative (Negative); LEUKO ESTERASE 1+ (Negative); NITRITE Positive (Negative); PH 7.5 (4.5-8.0); UROBILINOGEN 0.2 E.U./dl (0.0-1.0)
[2022-01-25 19:15] LABS: BACTERIA 4+
[2022-01-25 20:15] VITALS: BP 150/70
[2022-01-26] VITALS: BP 158/66
[2022-01-26 06:52] LABS: BASO # 0.1 10*3/uL (0.0-0.1); BASO % 0.5 % (0.0-1.0); EOS # 0.2 10*3/uL (0.0-0.4); EOS % 1.7 % (1.0-4.0); HEMATOCRIT 37.5 % (42.0-52.0); LYMPH # 0.7 10*3/uL (1.3-4.4); LYMPH % 6.8 % (27.0-41.0); MEAN CELL VOLUME 88.4 fl (80.0-94.0); MEAN CORPUSCULAR HGB 31.6 pg (27.0-31.0); MEAN CORPUSCULAR HGB CONC 35.7 g/dl (33.0-37.0); MEAN PLATELET VOLUME 8.8 fl (9.6-12.3); MONO # 0.9 10*3/uL (0.1-1.0); NEUT # 8.5 10*3/uL (2.3-7.9); NEUT % 81.6 % (47.0-73.0); PLATELET COUNT AUTOMATED 297 10*3/uL (130-400); RED BLOOD COUNT 4.24 10*6/uL (4.50-5.90); RED CELL DISTRI WIDTH 13.5 % (0-14.5); WHITE BLOOD COUNT 10.4 10*3/uL (4.8-10.8)
[2022-01-26 07:12] LABS: BUN 8 mg/dl (7-24); CHLORIDE 91 mmol/L (98-107); POTASSIUM 3.4 mmol/L (3.5-5.1); SODIUM 128 mmol/L (136-145)
[2022-01-26 07:22] LABS: ALKALINE PHOSPHATASE 68 U/L (45-117); CHOLESTEROL 131 mg/dL (<200); CREATININE 0.68 mg/dL (0.70-1.30); FREE T4 1.31 ng/dl (0.76-1.46); LDL CHOLESTEROL 43 mg/dL (9-159); SGOT/AST 12 IU/L (3-35); SGPT/ALT 18 U/L (12-78); TOTAL PROTEIN 6.9 gm/dL (6.4-8.2); TRIGLYCERIDES 45 mg/dl (<150)
[2022-01-26 08:00] VITALS: BP 109/76
[2022-01-26 08:07] LABS: VITAMIN D, 25-HYDROXY 49.3 ng/mL (30-100)
[2022-01-26 12:00] VITALS: BP 135/55
[2022-01-26 15:36] VITALS: BP 132/68
[2022-01-26 20:00] VITALS: BP 112/60
[2022-01-27] VITALS: BP 147/49
[2022-01-27 04:00] VITALS: BP 150/62
[2022-01-27 07:00] LABS: BASO % 0.4 % (0.0-1.0); EOS # 0.1 10*3/uL (0.0-0.4); EOS % 1.5 % (1.0-4.0); HEMATOCRIT 33.4 % (42.0-52.0); LYMPH # 0.7 10*3/uL (1.3-4.4); LYMPH % 7.6 % (27.0-41.0); MEAN CELL VOLUME 90.3 fl (80.0-94.0); MEAN CORPUSCULAR HGB 31.6 pg (27.0-31.0); MEAN PLATELET VOLUME 8.8 fl (9.6-12.3); MONO # 0.8 10*3/uL (0.1-1.0); MONO % 9.1 % (3.0-9.0); NEUT # 7.3 10*3/uL (2.3-7.9); NEUT % 81.1 % (47.0-73.0); PLATELET COUNT AUTOMATED 280 10*3/uL (130-400); RED CELL DISTRI WIDTH 13.4 % (0-14.5); WHITE BLOOD COUNT 8.9 10*3/uL (4.8-10.8)
[2022-01-27 07:09] LABS: BUN 13 mg/dl (7-24); CHLORIDE 97 mmol/L (98-107); CREATININE 0.66 mg/dL (0.70-1.30); POTASSIUM 3.6 mmol/L (3.5-5.1); SODIUM 132 mmol/L (136-145)
[2022-01-27 08:00] VITALS: BP 138/70
[2022-01-27 12:00] VITALS: BP 138/52
[2022-01-27 16:00] VITALS: BP 150/62
[2022-01-27 20:00] VITALS: BP 135/60
[2022-01-28] VITALS: BP 157/89
[2022-01-28 06:42] LABS: BASO % 0.5 % (0.0-1.0); EOS # 0.3 10*3/uL (0.0-0.4); EOS % 3.1 % (1.0-4.0); HEMATOCRIT 33.1 % (42.0-52.0); LYMPH # 0.7 10*3/uL (1.3-4.4); LYMPH % 7.8 % (27.0-41.0); MEAN CELL VOLUME 90.7 fl (80.0-94.0); MEAN CORPUSCULAR HGB 31.8 pg (27.0-31.0); MEAN PLATELET VOLUME 9.2 fl (9.6-12.3); MONO # 0.8 10*3/uL (0.1-1.0); NEUT # 6.6 10*3/uL (2.3-7.9); NEUT % 78.2 % (47.0-73.0); PLATELET COUNT AUTOMATED 293 10*3/uL (130-400); RED BLOOD COUNT 3.65 10*6/uL (4.50-5.90); RED CELL DISTRI WIDTH 13.5 % (0-14.5); WHITE BLOOD COUNT 8.4 10*3/uL (4.8-10.8)
[2022-01-28 07:00] LABS: BUN 12 mg/dl (7-24); CHLORIDE 99 mmol/L (98-107); CREATININE 0.55 mg/dL (0.70-1.30); POTASSIUM 3.5 mmol/L (3.5-5.1); SODIUM 133 mmol/L (136-145)
[2022-01-28 08:00] VITALS: BP 140/62
[2022-01-28 12:00] VITALS: BP 157/58
[2022-01-28 16:00] VITALS: BP 138/50
[2022-01-28 20:00] VITALS: BP 147/62
[2022-01-29] VITALS: BP 136/72
[2022-01-29 08:00] VITALS: BP 157/61
[2022-01-29 12:00] VITALS: BP 140/72
[2022-01-29 16:00] VITALS: BP 157/59
[2022-01-29 20:00] VITALS: BP 155/68
[2022-01-30] VITALS: BP 167/82
[2022-01-30 08:00] VITALS: BP 153/68
[2022-01-30 11:59] VITALS: BP 160/68
[2022-01-30 16:00] VITALS: BP 113/71
[2022-01-30 20:00] VITALS: BP 111/62
[2022-01-31] VITALS: BP 142/89
[2022-01-31 08:00] VITALS: BP 155/74
[2022-01-31 12:00] VITALS: BP 176/73
[2022-01-31] MEDS ORDERED: SEPTDS PO (14:58)
[2022-01-31] MEDS ORDERED: HYDROCODONE-AC1 EAC1 PO (14:58)
[2022-01-31 16:00] VITALS: BP 130/59
== END 2022-01-31 17:45 | DRG 872 ==
LOC: ED 11:24 → EDHOLD 13:12 → 5E 13:12
PROVIDERS: Family Medicine; Student in an Organized Health Care Education/Training Program; ADMIT Student in an Organized Health Care Education/Training Program; ATTEND Student in an Organized Health Care Education/Training Program
DX: A41.9 Sepsis, unspecified organism (principal); E87.1 Hypo-osmolality and hyponatremia; G91.2 (Idiopathic) normal pressure hydrocephalus; N30.00 Acute cystitis without hematuria; I50.42 Chronic combined systolic (congestive) and diastolic (congestive) heart failure; G91.9 Hydrocephalus, unspecified; R29.6 Repeated falls; D64.9 Anemia, unspecified; E87.8 Other disorders of electrolyte and fluid balance, not elsewhere classified; M25.552 Pain in left hip; Z20.822 Contact with and (suspected) exposure to COVID-19; I48.91 Unspecified atrial fibrillation; F41.9 Anxiety disorder, unspecified; I11.0 Hypertensive heart disease with heart failure; F32.9 Major depressive disorder, single episode, unspecified; K21.9 Gastro-esophageal reflux disease without esophagitis; R26.81 Unsteadiness on feet; Z98.42 Cataract extraction status, left eye; Z98.41 Cataract extraction status, right eye; Z87.891 Personal history of nicotine dependence; Z80.1 Family history of malignant neoplasm of trachea, bronchus and lung; Z83.6 Family history of other diseases of the respiratory system

== ENCOUNTER → 2022-05-18 | Outpatient (CLI) | payer OTHER ==
[~2022-05-18] MED LIST changes: +CLOPIDOGREL75 MG PO; +MUCINEX DM 30/61 TAB PO; +RIVASTIGMINE T1.5 M1 PO; +SEPTDS PO; +ZESTRIL10 MG PO
[2022-05-18 13:15] LABS: BUN 10 mg/dl (9-23); CHLORIDE 95 mmol/L (98-107); POTASSIUM 4.7 mmol/L (3.4-5.1); THYROID STIM HORMONE (HS) 1.842 uIU/ml (0.550-4.780)
== END | disposition home or self-care (01) ==
LOC: LAB 12:29
PROVIDERS: ATTEND Psychiatry & Neurology Clinical Neurophysiology
DX: I65.23 Occlusion and stenosis of bilateral carotid arteries (principal); I10 Essential (primary) hypertension; E55.9 Vitamin D deficiency, unspecified; R73.9 Hyperglycemia, unspecified; R20.2 Paresthesia of skin; R20.0 Anesthesia of skin

== ENCOUNTER 2022-11-03 11:51 | Emergency (ER) | payer OTHER ==
[~2022-11-03] VITALS: Ht 172.7 cm; Wt 68.0 kg
[2022-11-03 12:40] LABS: HEMATOCRIT 49.4 % (42.0-52.0); MEAN CELL VOLUME 89.7 fl (80.0-94.0); MEAN CORPUSCULAR HGB CONC 34.6 g/dl (33.0-37.0); MEAN PLATELET VOLUME 9.3 fl (9.6-12.3); PLATELET COUNT AUTOMATED 294 10*3/uL (130-400); RED BLOOD COUNT 5.51 10*6/uL (4.50-5.90); RED CELL DISTRI WIDTH 13.5 % (0-14.5); WHITE BLOOD COUNT 17.2 10*3/uL (4.8-10.8)
[2022-11-03 12:41] LABS: MANUAL DIFF REFLEX YES
[2022-11-03 12:49] LABS: ACT PARTIAL THROMBO TIME 34.3 SECONDS (20.0-32.1); INTERNATIONAL NORM RATIO 1.1 (2.0-3.5)
[2022-11-03 12:50] LABS: ALKALINE PHOSPHATASE 110 U/L (46-116); BUN < 5 mg/dl (9-23); CHLORIDE 90 mmol/L (98-107); LIPASE 25 U/L (12-53); POTASSIUM 3.4 mmol/L (3.4-5.1); SGPT/ALT 15 U/L (10-49); TOTAL PROTEIN 7.6 gm/dL (6.0-8.0)
[2022-11-03 13:04] LABS: PLATELET SUFFICIENCY NORMAL (NORMAL); TOTAL CELLS COUNTED 100 #CELLS
[2022-11-03 13:05] LABS: BURR CELLS MODERATE
[2022-11-03 13:06] LABS: ACANTHOCYTES FEW; VACUOLATION OF NEUTROPHILS SLIGHT
[2022-11-03 14:28] LABS: CPK 178 U/L (34-171)
[2022-11-03 14:29] LABS: ETHYL ALCOHOL < 3.0 mg/dl (<3)
[2022-11-03 15:38] LABS: BILIRUBIN Negative (Negative); BLOOD Negative (Negative); CLARITY Clear (Clear); COLOR Yellow (Yellow); GLUCOSE Negative (Negative); KETONE Trace (Negative); LEUKO ESTERASE Negative (Negative); NITRITE Negative (Negative); PH 6.5 (4.5-8.0)
[2022-11-03 15:46] LABS: URINE AMPHETAMINES Negative (1000ng/ml); URINE BARBITURATES Negative (200ng/ml); URINE BENZODIAZEPINES Negative (200ng/ml); URINE CANNABINOIDS (THC) Negative (50ng/ml); URINE COCAINE Negative (300ng/ml); URINE METHADONE Negative (300ng/ml); URINE OPIATES Negative (300ng/ml); URINE PHENCYCLIDINE Negative (25ng/ml)
[2022-11-03 15:51] LABS: BACTERIA TRACE; MUCOUS 1+
[2022-11-03 16:00] VITALS: BP 164/74
== END 2022-11-03 20:34 | disposition home or self-care (01) ==
LOC: ED 11:51
PROVIDERS: Internal Medicine
DX: F43.21 Adjustment disorder with depressed mood (principal); E87.1 Hypo-osmolality and hyponatremia; J44.9 Chronic obstructive pulmonary disease, unspecified; I10 Essential (primary) hypertension; I48.91 Unspecified atrial fibrillation; Z98.890 Other specified postprocedural states; Z98.42 Cataract extraction status, left eye; Z98.41 Cataract extraction status, right eye; F17.200 Nicotine dependence, unspecified, uncomplicated; F10.10 Alcohol abuse, uncomplicated; Z79.899 Other long term (current) drug therapy

== ENCOUNTER 2023-12-06 10:56 | Emergency (ER) | payer MEDICARE ==
[~2023-12-06] VITALS: Wt 50.0 kg
[2023-12-06] MEDS ORDERED: fentaNYL CITRATE/PF 50 MCG/ML SYRINGE IV ONE (11:05)
[2023-12-06] MEDS ORDERED: SODIUM CHLORIDE 0.9% 1,000 ML IV ONE (11:05)
[2023-12-06 11:06] VITALS: BP 162/74
[2023-12-06 11:22] LABS: HEMATOCRIT 42.3 % (42.0-52.0); MEAN CELL VOLUME 93.8 fl (80.0-94.0); MEAN CORPUSCULAR HGB 30.6 pg (27.0-31.0); MEAN CORPUSCULAR HGB CONC 32.6 g/dl (33.0-37.0); MEAN PLATELET VOLUME 10.1 fl (9.6-12.3); PLATELET COUNT AUTOMATED 284 10*3/uL (130-400); RED BLOOD COUNT 4.51 10*6/uL (4.50-5.90); RED CELL DISTRI WIDTH 14.2 % (0-14.5); WHITE BLOOD COUNT 17.4 10*3/uL (4.8-10.8)
[2023-12-06 11:41] LABS: MANUAL DIFF REFLEX YES
[2023-12-06 11:42] LABS: BUN 20 mg/dl (9-23); CHLORIDE 101 mmol/L (98-107); POTASSIUM 3.6 mmol/L (3.4-5.1)
[2023-12-06 11:46] LABS: PLATELET SUFFICIENCY NORMAL (NORMAL); TOTAL CELLS COUNTED 100 #CELLS
[2023-12-06 11:50] LABS: ACT PARTIAL THROMBO TIME 32.4 SECONDS (20.0-32.1)
== END 2023-12-06 16:20 | disposition short-term general hospital (02) ==
LOC: ED 10:56
PROVIDERS: Emergency Medicine
DX: S22.42XA Multiple fractures of ribs, left side, initial encounter for closed fracture (principal); S09.93XA Unspecified injury of face, initial encounter; Q75.8 Other specified congenital malformations of skull and face bones; J44.9 Chronic obstructive pulmonary disease, unspecified; I11.0 Hypertensive heart disease with heart failure; I50.9 Heart failure, unspecified; I48.91 Unspecified atrial fibrillation; E78.5 Hyperlipidemia, unspecified; F17.200 Nicotine dependence, unspecified, uncomplicated; Z98.890 Other specified postprocedural states; W01.190A Fall on same level from slipping, tripping and stumbling with subsequent striking against furniture, initial encounter; Y93.89 Activity, other specified; Y92.89 Other specified places as the place of occurrence of the external cause; Y99.8 Other external cause status